=== PATIENT | male | born 1955 | race African-American/Black ===

== ENCOUNTER 2025-08-26 20:04 | Inpatient (IN) | payer MEDICARE, MEDICAID ==
[~2025-08-26] VITALS: Ht 188 cm; Wt 66.7 kg
[2025-08-26 20:46] LABS: BASOPHILS % 1.1 % (0.0-2.0); EOSINOPHILS % 1.6 % (0.0-5.0); HEMATOCRIT. 36.8 % (42.0-52.0); HEMOGLOBIN. 11.5 g/dL (14.0-18.0); LYMPHOCYTES % 20.2 % (20.0-50.0); MEAN PLATELET VOLUME 8.8 fl (7.4-10.4); MONOCYTES % 5.7 % (2.0-8.0); NEUTROPHILS % 71.4 % (40.0-76.0); PLATELET 166 x1000/uL (130-400); RED BLOOD CELL COUNT 4.53 mill/uL (4.7-6.1); RED CELL DISTRIBUTION WIDTH 22.3 % (11.6-14.6)
[2025-08-26 20:47] LABS: ADD RBC MORPHOLOGY YES
[2025-08-26 20:59] LABS: CREATININE 1.6 mg/dL (0.6-1.3)
[2025-08-26 21:00] LABS: UREA NITROGEN BLOOD 35 mg/dL (9-23)
[2025-08-26 21:11] LABS: TROPONIN I HIGH SENSITIVITY 150 ng/L (3.0-53)
[2025-08-26 21:13] LABS: PLATELET ESTIMATE NORMAL
[2025-08-26] MEDS ORDERED: AZITHROMYCIN 250 MG in DEXT 5% WATER 250 ML IV SCH (21:15)
[2025-08-26] MEDS ORDERED: AZITHROMYCIN 500MG/250ML 250 ML IV SCH (21:15)
[2025-08-26] MEDS: CEFTRIAXONE 1GM/50ML 50 ML IV ONE (21:27)
[2025-08-26] MEDS: SODIUM CHLORIDE 0.9% 1,000 ML IV ONE (21:27)
[2025-08-26] MEDS: ENOXAPARIN 60MG/0.6ML SYR SUBCUT ONE (21:31)
[2025-08-27] VITALS (7 sets, daily range): BP systolic 133–186; BP diastolic 68–122; PULSE 78–106; RESP 18–22; TEMP 36.2–36.5292; O2SAT 97–100
[2025-08-27] MEDS ORDERED: IPRATROPIUM/ALBUTEROL 0.5-3(2.5)MG/3ML NEB HHN PRN
[2025-08-27 07:29] LABS: BASOPHILS % 0.8 % (0.0-2.0); EOSINOPHILS % 1.5 % (0.0-5.0); HEMATOCRIT. 36.3 % (42.0-52.0); HEMOGLOBIN. 11.1 g/dL (14.0-18.0); LYMPHOCYTES % 20.7 % (20.0-50.0); MEAN PLATELET VOLUME 9.0 fl (7.4-10.4); MONOCYTES % 8.3 % (2.0-8.0); NEUTROPHILS % 68.7 % (40.0-76.0); PLATELET 158 x1000/uL (130-400); RED BLOOD CELL COUNT 4.45 mill/uL (4.7-6.1); RED CELL DISTRIBUTION WIDTH 22.5 % (11.6-14.6)
[2025-08-27 08:48] LABS: TROPONIN I HIGH SENSITIVITY 148.0 ng/L (3.0-53)
[2025-08-27 08:49] LABS: LDL CHOLESTEROL 80.0 mg/dL (5-100); TRIGLYCERIDE 112.0 mg/dL (0-150)
[2025-08-27] MEDS: FUROSEMIDE 40MG/4ML VIAL IVP SCH (09:54)
[2025-08-27] MEDS: ENOXAPARIN 40MG/0.4ML SYR SUBCUT SCH (09:55)
[2025-08-27] MEDS: CARVEDILOL 3.125 MG TABLET PO SCH (09:55)
[2025-08-27] MEDS: ATORVASTATIN CALCIUM 40MG TABLET PO SCH (09:55)
[2025-08-27] MEDS: AMLODIPINE 10MG TABLET PO SCH (09:56)
[2025-08-27] MEDS: LOSARTAN 50 MG TABLET PO SCH (09:56)
[2025-08-27] MEDS ORDERED: ENOXAPARIN 30MG/0.3ML SYR SUBCUT SCH (12:00)
[2025-08-27] MEDS: ENOXAPARIN 80MG/0.8ML SYR SUBCUT SCH (20:27)
[2025-08-28] VITALS (9 sets, daily range): BP systolic 130–147; BP diastolic 77–98; PULSE 74–90; RESP 18–20; TEMP 35.9–36.5; O2SAT 18–100
[2025-08-28] MEDS: BUDESONIDE 0.5MG/2ML NEB HHN SCH (08:34)
[2025-08-28] MEDS: IPRATROPIUM/ALBUTEROL 0.5-3(2.5)MG/3ML NEB HHN SCH (08:34)
[2025-08-28 09:44] LABS: *AMPHETAMINES SCREEN URINE NEGATIVE (NEGATIVE); *BARBITURATES SCREEN URINE NEGATIVE (NEGATIVE); *BENZODIAZEPINES SCREEN URINE NEGATIVE (NEGATIVE); *COCAINE SCREEN URINE PRESUMPTIVE POSITIVE (NEGATIVE); CANNABINOID URINE SCREEN NEGATIVE (NEGATIVE); ECSTASY MDMA SCREEN URINE NEGATIVE (NEGATIVE); METHADONE URINE SCREEN NEGATIVE (NEGATIVE); OPIATES URINE SCREEN NEGATIVE (NEGATIVE); PHENCYCLIDINE URINE SCREEN NEGATIVE (NEGATIVE)
[2025-08-28] MEDS: PREDNISONE 20MG TABLET PO SCH (17:21)
[2025-08-29] VITALS (8 sets, daily range): BP systolic 121–146; BP diastolic 64–93; PULSE 52–91; RESP 16–22; TEMP 36.4–36.9; O2SAT 98–100
[2025-08-29 08:10] LABS: BASOPHILS % 0.2 % (0.0-2.0); EOSINOPHILS % 0.0 % (0.0-5.0); HEMATOCRIT. 34.1 % (42.0-52.0); HEMOGLOBIN. 10.6 g/dL (14.0-18.0); LYMPHOCYTES % 13.8 % (20.0-50.0); MEAN PLATELET VOLUME 8.9 fl (7.4-10.4); MONOCYTES % 5.5 % (2.0-8.0); NEUTROPHILS % 80.5 % (40.0-76.0); PLATELET 153 x1000/uL (130-400); RED BLOOD CELL COUNT 4.18 mill/uL (4.7-6.1); RED CELL DISTRIBUTION WIDTH 21.8 % (11.6-14.6)
[2025-08-29 08:15] LABS: INR 1.2
[2025-08-29 08:18] LABS: CREATININE 1.4 mg/dL (0.6-1.3)
[2025-08-29 08:19] LABS: UREA NITROGEN BLOOD 33 mg/dL (9-23)
[2025-08-29] MEDS ORDERED: FLUT1DIS3 INH (12:05)
[2025-08-29] MEDS ORDERED: IPRA3AMP9 NEB (12:05)
[2025-08-29] MEDS ORDERED: ALBU18HF2 IH (12:05)
[2025-08-29] MEDS ORDERED: P20 MT (12:05)
[2025-08-29 15:19] LABS: BG BASE EXCESS -1.1 mmol/L (-2.0-3.0); BG CARBOXYHEMOGLOBIN 0.8 % (0.5-1.5); BG DEOXYHEMOGLOBIN 5.6 % (0.0-5.0); BG FRACTION INSPIRED OXYGEN 21; BG HCO3 ACT 23.5 mmol/L (21.0-28.0); BG METHEMOGLOBIN 0.3 % (0.5-1.5); BG OXYGEN SATURATION 94.3 % (94.0-98.0); BG OXYHEMOGLOBIN 93.3 % (94.0-98.0); BG PCO2 38.9 mmHg (35.0-48.0); BG PH 7.399 (7.350-7.450); BG PO2 73.3 mmHg (83.0-108.0); BG SAMPLE SITE LEFT BRACHIAL; BG TOTAL HEMOGLOBIN 11.5 g/dL (13.5-17.5); BG VENT MODE ROOM AIR
[2025-08-29] MEDS: FUROSEMIDE 40MG/4ML VIAL IVP SCH (17:35)
[2025-08-29] MEDS: HYDROCODONE/ACETAMINOPHEN 5/325MG TABLET PO PRN (20:34)
[2025-08-30] VITALS: BP 143/73; PULSE 61; RESP 20; TEMP 36.6; O2SAT 99
[2025-08-30 04:00] VITALS: BP 146/85; PULSE 59; RESP 20; TEMP 36.7; O2SAT 97
[2025-08-30 08:00] VITALS: BP 157/86; PULSE 78; RESP 18; TEMP 36.1; O2SAT 95
[2025-08-30] MEDS: SPIRONOLACTONE 25MG TABLET PO SCH (08:51)
[2025-08-30 12:00] VITALS: BP 123/91; PULSE 76; RESP 17; TEMP 36.1; O2SAT 99
[2025-08-30] MEDS ORDERED: LOSA100T33 MT (12:22)
[2025-08-30] MEDS ORDERED: CARV3.1242 MT (12:22)
[2025-08-30] MEDS ORDERED: FURO-151 MT (12:23)
[2025-08-30] MEDS ORDERED: SPIR25TA6 MT (12:23)
[2025-08-30 14:46] VITALS: BP 138/85; PULSE 75; RESP 18; TEMP 97
[2025-08-30 14:58] VITALS: PULSE 82; RESP 18; O2SAT 99
[2025-08-30 18:56] LABS: BODY FLUID RBC 952 /cu mm (0-2000); BODY FLUID WBC 380 /cu mm (0-200)
[2025-08-30 19:19] LABS: BODY FLUID MONOCYTES 69 %
== END 2025-08-30 16:05 | disposition home or self-care (01) | DRG 871 ==
LOC: ER 20:04 → EDBEDREQ 21:33 → EDBEDREQTM 21:33 → ENRESERV 21:51 → 6WST 22:33
PROVIDERS: ADMIT Internal Medicine; ATTEND Internal Medicine
PROC: 0W993ZZ Drainage of Right Pleural Cavity, Percutaneous Approach (ICD-10-PCS; principal; 2025-08-30)
DX: A41.9 Sepsis, unspecified organism (principal); I21.A1 Myocardial infarction type 2; N17.0 Acute kidney failure with tubular necrosis; J96.01 Acute respiratory failure with hypoxia; I50.23 Acute on chronic systolic (congestive) heart failure; J68.0 Bronchitis and pneumonitis due to chemicals, gases, fumes and vapors; Z59.00 Homelessness unspecified; I13.0 Hypertensive heart and chronic kidney disease with heart failure and stage 1 through stage 4 chronic kidney disease, or unspecified chronic kidney disease; D64.9 Anemia, unspecified; F14.10 Cocaine abuse, uncomplicated; F17.210 Nicotine dependence, cigarettes, uncomplicated; N18.9 Chronic kidney disease, unspecified; I16.0 Hypertensive urgency; E78.00 Pure hypercholesterolemia, unspecified; I25.10 Atherosclerotic heart disease of native coronary artery without angina pectoris; Z86.711 Personal history of pulmonary embolism; Z71.6 Tobacco abuse counseling; Z91.199 Patient's noncompliance with other medical treatment and regimen due to unspecified reason; Z95.5 Presence of coronary angioplasty implant and graft
CPT/HCPCS: 32555; 36415; 36600; 71045; 71250; 78580; 80048; 80061; 80305; 82375; 82805; 83036; 83735; 83880; 84443; 84484; 85025; 85379; 87426; 93005; 93306; 93970; 94070; 94640; 94760; 96365; 96372; 99285; A4606; J0456; J0696; J1650; J1938; J7030; J7060; J7512; J7626

== ENCOUNTER 2025-10-05 18:33 | Inpatient (IN) | payer MEDICAID ==
[~2025-10-05] VITALS: Ht 188 cm; Wt 66.4 kg
[~2025-10-05 18:33] MED LIST: ALBU18HF2 IH; CARV3.1242 MT; FLUT1DIS3 INH; FURO-151 MT; IPRA3AMP9 NEB; LOSA100T33 MT; P20 MT; SPIR25TA6 MT
[2025-10-05] MEDS: ASPIRIN 81MG TABLET PO ONE (20:10)
[2025-10-05] MEDS: FUROSEMIDE 40MG/4ML VIAL IVP ONE (20:10)
[2025-10-05 20:17] LABS: HEMATOCRIT. 37.1 % (42.0-52.0); HEMOGLOBIN. 11.5 g/dL (14.0-18.0); MEAN PLATELET VOLUME 9.0 fl (7.4-10.4); PLATELET 236 x1000/uL (130-400); RED BLOOD CELL COUNT 4.43 mill/uL (4.7-6.1); RED CELL DISTRIBUTION WIDTH 21.5 % (11.6-14.6)
[2025-10-05 20:30] LABS: UREA NITROGEN BLOOD 40 mg/dL (9-23)
[2025-10-05 20:32] LABS: ASPARTATE AMINOTRANSFERASE 72 IU/L (<34); BILIRUBIN DIRECT 0.3 mg/dL (<=3.0)
[2025-10-05 20:33] LABS: BILIRUBIN TOTAL 0.6 mg/dL (0.1-1.0); PROTEIN TOTAL 6.6 g/dL (6.0-8.3)
[2025-10-05 20:45] LABS: CREATININE 2.0 mg/dL (0.6-1.3)
[2025-10-05 20:47] LABS: TROPONIN I HIGH SENSITIVITY 241 ng/L (3.0-53)
[2025-10-05 21:15] LABS: LYMPHOCYTES % MANUAL 16.0 % (20.0-50.0); MONOCYTES % MANUAL 7.0 % (2.0-8.0); NEUTROPHILS % MANUAL 77.0 % (45.0-75.0); PLATELET ESTIMATE NORMAL
[2025-10-05 21:17] LABS: *AMPHETAMINES SCREEN URINE NEGATIVE (NEGATIVE); *BARBITURATES SCREEN URINE NEGATIVE (NEGATIVE); *BENZODIAZEPINES SCREEN URINE NEGATIVE (NEGATIVE); *COCAINE SCREEN URINE PRESUMPTIVE POSITIVE (NEGATIVE)
[2025-10-05 21:18] LABS: CANNABINOID URINE SCREEN NEGATIVE (NEGATIVE); ECSTASY MDMA SCREEN URINE NEGATIVE (NEGATIVE); METHADONE URINE SCREEN NEGATIVE (NEGATIVE); OPIATES URINE SCREEN NEGATIVE (NEGATIVE); PHENCYCLIDINE URINE SCREEN PRESUMTIVE POSITIVE (NEGATIVE)
[2025-10-05] MEDS: HYDRALAZINE HCL 50MG TABLET PO SCH (22:00)
[2025-10-05 22:45] VITALS: BP 158/96; PULSE 84; RESP 18; TEMP 36.1956; TEMP 36.2; O2SAT 99
[2025-10-05] MEDS ORDERED: HYDROCODONE/ACETAMINOPHEN 5/325MG TABLET PO PRN (23:15)
[2025-10-06] MEDS: CLONIDINE 0.1MG TABLET PO PRN (02:35)
[2025-10-06 08:00] VITALS: BP 143/87; PULSE 77; RESP 20; TEMP 36.5; O2SAT 100
[2025-10-06 08:25] LABS: HEMATOCRIT. 35.6 % (42.0-52.0); HEMOGLOBIN. 11.2 g/dL (14.0-18.0); MEAN PLATELET VOLUME 8.7 fl (7.4-10.4); PLATELET 229 x1000/uL (130-400); RED BLOOD CELL COUNT 4.26 mill/uL (4.7-6.1); RED CELL DISTRIBUTION WIDTH 21.3 % (11.6-14.6)
[2025-10-06] MEDS ORDERED: ONDANSETRON HCL 4MG/2ML INJ IV PRN (08:45)
[2025-10-06 08:48] LABS: CREATININE 1.8 mg/dL (0.6-1.3); TRIGLYCERIDE 110.0 mg/dL (0-150); UREA NITROGEN BLOOD 37.0 mg/dL (9-23)
[2025-10-06 08:49] LABS: LDL CHOLESTEROL 85.0 mg/dL (5-100)
[2025-10-06] MEDS: FUROSEMIDE 40MG/4ML VIAL IVP SCH (09:07)
[2025-10-06] MEDS: CARVEDILOL 3.125 MG TABLET PO SCH (09:07)
[2025-10-06] MEDS: PANTOPRAZOLE SODIUM 40 MG/VIAL IV SCH (09:08)
[2025-10-06 09:38] LABS: TROPONIN I HIGH SENSITIVITY 179 ng/L (3.0-53)
[2025-10-06 12:28] LABS: CLARITY URINE CLEAR (CLEAR); COLOR URINE YELLOW (YELLOW); GLUCOSE URINE NEGATIVE (NEGATIVE); KETONES URINE NEGATIVE (NEGATIVE); LEUKOCYTE ESTERASE URINE NEGATIVE (NEGATIVE); NITRITE URINE NEGATIVE (NEGATIVE); OCCULT BLOOD URINE NEGATIVE (NEGATIVE); PH URINE 5.5 (4.5-8.0); PROTEIN URINE NEGATIVE (NEGATIVE); SPECIFIC GRAVITY URINE 1.008 (1.005-1.030); UROBILINOGEN URINE 0.2 E.U./dL (0.2-1.0)
[2025-10-06 12:32] VITALS: BP 137/96; PULSE 83; RESP 18; TEMP 36.2; O2SAT 98
[2025-10-06] MEDS: MAGNESIUM 1 G PREMIX 100 ML IV NR (15:20)
[2025-10-06 16:00] VITALS: BP 147/84; PULSE 87; RESP 18; TEMP 35.9; O2SAT 98
[2025-10-06 20:00] VITALS: BP 150/91; PULSE 83; RESP 20; TEMP 36.8; O2SAT 99
[2025-10-06] MEDS: ATORVASTATIN CALCIUM 40MG TABLET PO SCH (20:42)
[2025-10-06] MEDS: ENOXAPARIN 40MG/0.4ML SYR SUBCUT SCH (21:00)
[2025-10-07] VITALS: BP 129/85; PULSE 80; RESP 21; TEMP 36.4; O2SAT 98
[2025-10-07 04:00] VITALS: BP 129/79; PULSE 78; RESP 20; TEMP 36.8; O2SAT 98
[2025-10-07 04:44] LABS: LYMPHOCYTES % MANUAL 29.0 % (20.0-50.0); MONOCYTES % MANUAL 10.0 % (2.0-8.0); NEUTROPHILS % MANUAL 61.0 % (45.0-75.0); PLATELET ESTIMATE NORMAL
[2025-10-07 07:27] LABS: BASOPHILS % 0.5 % (0.0-2.0); EOSINOPHILS % 1.2 % (0.0-5.0); HEMATOCRIT. 34.7 % (42.0-52.0); HEMOGLOBIN. 10.8 g/dL (14.0-18.0); LYMPHOCYTES % 14.2 % (20.0-50.0); MEAN PLATELET VOLUME 8.6 fl (7.4-10.4); MONOCYTES % 10.7 % (2.0-8.0); NEUTROPHILS % 73.4 % (40.0-76.0); PLATELET 234 x1000/uL (130-400); RED BLOOD CELL COUNT 4.15 mill/uL (4.7-6.1); RED CELL DISTRIBUTION WIDTH 21.0 % (11.6-14.6)
[2025-10-07 07:47] LABS: CREATININE 1.6 mg/dL (0.6-1.3)
[2025-10-07 07:48] LABS: UREA NITROGEN BLOOD 37 mg/dL (9-23)
[2025-10-07 08:00] VITALS: BP 120/61; PULSE 77; RESP 18; TEMP 36.6; O2SAT 97
[2025-10-07] MEDS: FUROSEMIDE 100MG/10ML VIAL IVP SCH (08:28)
[2025-10-07 12:00] VITALS: BP 115/56; PULSE 83; RESP 17; TEMP 36.4; O2SAT 95
[2025-10-07 16:00] VITALS: BP 136/86; PULSE 80; RESP 18; TEMP 36.5; O2SAT 100
[2025-10-07 20:00] VITALS: BP 111/73; PULSE 84; RESP 22; TEMP 36.2; O2SAT 96
[2025-10-08] VITALS: BP 125/86; PULSE 82; RESP 22; TEMP 36.2; O2SAT 98
[2025-10-08 04:00] VITALS: BP 109/61; PULSE 74; RESP 20; TEMP 36.2; O2SAT 99
[2025-10-08 06:10] LABS: CREATININE 1.7 mg/dL (0.6-1.3); UREA NITROGEN BLOOD 34.0 mg/dL (9-23)
[2025-10-08 08:00] VITALS: BP 133/84; PULSE 74; RESP 20; TEMP 36.4; O2SAT 96
[2025-10-08 08:43] LABS: BASOPHILS % 0.8 % (0.0-2.0); EOSINOPHILS % 1.4 % (0.0-5.0); HEMATOCRIT. 33.0 % (42.0-52.0); HEMOGLOBIN. 10.4 g/dL (14.0-18.0); LYMPHOCYTES % 13.6 % (20.0-50.0); MEAN PLATELET VOLUME 8.6 fl (7.4-10.4); MONOCYTES % 9.8 % (2.0-8.0); NEUTROPHILS % 74.4 % (40.0-76.0); PLATELET 253 x1000/uL (130-400); RED BLOOD CELL COUNT 4.02 mill/uL (4.7-6.1); RED CELL DISTRIBUTION WIDTH 20.7 % (11.6-14.6)
[2025-10-08] MEDS ORDERED: FURO80TA87 MT (09:26)
[2025-10-08] MEDS ORDERED: EMPA10TA MT (09:26)
[2025-10-08] MEDS ORDERED: CARV3.1242 MT (09:26)
[2025-10-08] MEDS ORDERED: LOSA100T33 MT (09:26)
[2025-10-08 12:00] VITALS: BP 119/65; PULSE 77; RESP 18; TEMP 36.9; O2SAT 97
[2025-10-08 16:00] VITALS: BP 134/78; PULSE 81; RESP 17; TEMP 36.6; O2SAT 97
[2025-10-08 20:00] VITALS: BP 137/85; PULSE 81; RESP 19; TEMP 36.7; O2SAT 97
[2025-10-08] MEDS: FUROSEMIDE 40MG TABLET PO SCH (20:56)
[2025-10-09] VITALS: BP 126/71; PULSE 84; RESP 19; TEMP 36.4; O2SAT 100
[2025-10-09 04:00] VITALS: BP 118/65; PULSE 71; RESP 19; TEMP 36.3; O2SAT 93
[2025-10-09 08:00] VITALS: BP 138/78; PULSE 72; RESP 18; TEMP 36.5; O2SAT 98
[2025-10-09 12:00] VITALS: BP 129/78; PULSE 77; RESP 18; TEMP 36.2; O2SAT 98
[2025-10-09 16:00] VITALS: BP 130/70; PULSE 87; RESP 18; TEMP 36.2; O2SAT 98
[2025-10-09 20:00] VITALS: BP 153/87; PULSE 81; RESP 20; TEMP 36.3; O2SAT 93
[2025-10-10] VITALS (7 sets, daily range): BP systolic 122–150; BP diastolic 63–80; PULSE 72–94; RESP 18–20; TEMP 36.4–36.7; O2SAT 95–99
[2025-10-10 09:30] LABS: BG BASE EXCESS 3.6 mmol/L (-2.0-3.0); BG CARBOXYHEMOGLOBIN 0.8 % (0.5-1.5); BG DEOXYHEMOGLOBIN 3.4 % (0.0-5.0); BG FRACTION INSPIRED OXYGEN 21; BG HCO3 ACT 28.2 mmol/L (21.0-28.0); BG METHEMOGLOBIN 0.3 % (0.5-1.5); BG OXYGEN SATURATION 96.6 % (94.0-98.0); BG OXYHEMOGLOBIN 95.5 % (94.0-98.0); BG PCO2 42.7 mmHg (35.0-48.0); BG PH 7.438 (7.350-7.450); BG PO2 81.7 mmHg (83.0-108.0); BG SAMPLE SITE RIGHT BRACHIAL; BG TOTAL HEMOGLOBIN 12.4 g/dL (13.5-17.5); BG VENT MODE ROOM AIR
[2025-10-10] MEDS: IPRATROPIUM/ALBUTEROL 0.5-3(2.5)MG/3ML NEB HHN PRN (13:42)
[2025-10-10] MEDS: LOPERAMIDE HCL 2MG CAPSULE PO PRN (19:50)
[2025-10-11] VITALS (7 sets, daily range): BP systolic 125–139; BP diastolic 58–87; PULSE 69–92; RESP 17–20; TEMP 36.5–37.2; O2SAT 98–99
[2025-10-11] MEDS: FAMOTIDINE 20MG/2ML VIAL IV SCH (08:48)
[2025-10-12] VITALS: BP 117/75; PULSE 95; RESP 16; TEMP 36.7; O2SAT 97
[2025-10-12 04:00] VITALS: BP 126/72; PULSE 92; RESP 18; TEMP 36.6; O2SAT 99
[2025-10-12 08:00] VITALS: BP 138/90; PULSE 88; RESP 20; TEMP 36.9; O2SAT 99
[2025-10-12 12:00] VITALS: BP 150/75; PULSE 80; RESP 20; TEMP 36.8; O2SAT 99
[2025-10-12] MEDS ORDERED: LORAZEPAM 2MG/ML UD SYRINGE ONE (13:54)
[2025-10-12] MEDS: LORAZEPAM 2MG/ML UD SYRINGE IV PRN (14:04)
[2025-10-12 16:00] VITALS: BP 142/80; PULSE 75; RESP 20; TEMP 36.1
[2025-10-12 20:00] VITALS: BP 108/69; PULSE 84; RESP 16; TEMP 37; O2SAT 97
[2025-10-13] VITALS (9 sets, daily range): BP systolic 94–140; BP diastolic 62–94; PULSE 77–180; RESP 18–24; TEMP 36.6–37.6; O2SAT 96–100
[2025-10-13 09:14] LABS: CREATININE 1.9 mg/dL (0.6-1.3); UREA NITROGEN BLOOD 35 mg/dL (9-23)
[2025-10-13 09:16] LABS: PHOSPHORUS 3.6 mg/dL (2.5-4.9)
[2025-10-13 09:23] LABS: HEMATOCRIT. 33.7 % (42.0-52.0); HEMOGLOBIN. 10.3 g/dL (14.0-18.0); MEAN PLATELET VOLUME 9.2 fl (7.4-10.4); PLATELET 129 x1000/uL (130-400); RED BLOOD CELL COUNT 3.92 mill/uL (4.7-6.1); RED CELL DISTRIBUTION WIDTH 21.0 % (11.6-14.6)
[2025-10-13] MEDS: PIPERACILLIN/TAZO 3.375G/50ML 50 ML IV SCH (15:09)
[2025-10-13 18:09] LABS: LYMPHOCYTES % MANUAL 6.0 % (20.0-50.0); MONOCYTES % MANUAL 9.0 % (2.0-8.0); NEUTROPHILS % MANUAL 85.0 % (45.0-75.0); PLATELET ESTIMATE DECREASED
[2025-10-13] MEDS: METOPROLOL TARTRATE 5MG/5ML VIAL IV SCH (18:40)
[2025-10-13] MEDS: DILTIAZEM HCL 5MG/ML 5ML VIAL IV SCH (18:47)
[2025-10-13] MEDS: DIGOXIN 500MCG/2ML AMP IV SCH (18:51)
[2025-10-13] MEDS: ACETAMINOPHEN 325MG TABLET PO PRN (18:56)
[2025-10-13] MEDS: IPRATROPIUM/ALBUTEROL 0.5-3(2.5)MG/3ML NEB HHN SCH (20:27)
[2025-10-14] VITALS (12 sets, daily range): BP systolic 96–146; BP diastolic 59–78; PULSE 70–104; RESP 16–26; TEMP 35.8–38.4; O2SAT 94–99
[2025-10-14 06:23] LABS: INR 1.5
[2025-10-14 06:56] LABS: CREATININE 2.0 mg/dL (0.6-1.3); UREA NITROGEN BLOOD 42.0 mg/dL (9-23)
[2025-10-14 06:57] LABS: LACTATE DEHYDROGENASE 217.0 IU/L (120-246)
[2025-10-14 08:11] LABS: HEMATOCRIT. 33.1 % (42.0-52.0); HEMOGLOBIN. 10.2 g/dL (14.0-18.0); MEAN PLATELET VOLUME 9.0 fl (7.4-10.4); PLATELET 115 x1000/uL (130-400); RED BLOOD CELL COUNT 4.05 mill/uL (4.7-6.1); RED CELL DISTRIBUTION WIDTH 19.9 % (11.6-14.6)
[2025-10-14] MEDS ORDERED: SODIUM BICARBONATE 4.2% 2.5MEQ/5ML VIAL IV ONE (08:58)
[2025-10-14 13:22] LABS: PROTEIN BODY FLUID < 2.0 gm/dL
[2025-10-14 13:44] LABS: BODY FLUID RBC 855 /cu mm (0-2000); BODY FLUID WBC 110 /cu mm (0-200)
[2025-10-14] MEDS: METOPROLOL TARTRATE 50MG TABLET PO SCH (15:32)
[2025-10-14 18:26] LABS: BAND% 1.0 % (1.0-6.0); LYMPHOCYTES % MANUAL 5.0 % (20.0-50.0); MONOCYTES % MANUAL 5.0 % (2.0-8.0); NEUTROPHILS % MANUAL 89.0 % (45.0-75.0); PLATELET ESTIMATE DECREASED
[2025-10-15] VITALS (7 sets, daily range): BP systolic 112–132; BP diastolic 65–82; PULSE 76–92; RESP 16–20; TEMP 35.8–36.8; O2SAT 87–98
[2025-10-16] VITALS (7 sets, daily range): BP systolic 121–146; BP diastolic 72–95; PULSE 76–86; RESP 16–25; TEMP 36.2–36.7; O2SAT 87–98
== END 2025-10-16 14:47 | disposition home or self-care (01) | DRG 280 ==
LOC: ER 18:33 → 8WST 20:58 → EDBEDREQ 21:02 → EDBEDREQTM 21:02 → ENRESERV 21:47
PROVIDERS: ADMIT Internal Medicine; ATTEND Internal Medicine
PROC: 0W993ZZ Drainage of Right Pleural Cavity, Percutaneous Approach (ICD-10-PCS; principal; 2025-10-14)
DX: I13.0 Hypertensive heart and chronic kidney disease with heart failure and stage 1 through stage 4 chronic kidney disease, or unspecified chronic kidney disease (principal); I50.23 Acute on chronic systolic (congestive) heart failure; I21.A1 Myocardial infarction type 2; J96.01 Acute respiratory failure with hypoxia; D69.6 Thrombocytopenia, unspecified; I47.20 Ventricular tachycardia, unspecified; E83.51 Hypocalcemia; N17.9 Acute kidney failure, unspecified; J91.8 Pleural effusion in other conditions classified elsewhere; D64.9 Anemia, unspecified; N18.30 Chronic kidney disease, stage 3 unspecified; F14.10 Cocaine abuse, uncomplicated; Z59.00 Homelessness unspecified; I25.10 Atherosclerotic heart disease of native coronary artery without angina pectoris; E78.00 Pure hypercholesterolemia, unspecified; F17.210 Nicotine dependence, cigarettes, uncomplicated; F19.10 Other psychoactive substance abuse, uncomplicated; Z79.51 Long term (current) use of inhaled steroids; Z79.84 Long term (current) use of oral hypoglycemic drugs; Z79.899 Other long term (current) drug therapy; Z86.711 Personal history of pulmonary embolism; Z91.148 Patient's other noncompliance with medication regimen for other reason; Z95.5 Presence of coronary angioplasty implant and graft
CPT/HCPCS: 32555; 36415; 36600; 71045; 76604; 80048; 80061; 80076; 80305; 80320; 81003; 82040; 82375; 82805; 83615; 83735; 83880; 84100; 84484; 85025; 88108; 93005; 93306; 93970; 94070; 94640; 94664; 94760; 96374; 97162; 98960; 99291; A4606; A4615; J1160; J1308; J1650; J1938; J2060; J2470; J2543; J3475; J3490; G0480